=== PATIENT | male | born 1980 | race Caucasian/White ===

== ENCOUNTER 2018-02-25 19:07 | Observation (INO) ==
[2018-02-25] MEDS ORDERED: Sodium Chlor 0.9% Inj 500 ML IV.SIG ONE (20:07)
--- NOTE | 2018-02-25 20:19 | ED ---
HPI General Chief Complaint: Chest Pain Stated Complaint: Medical Clearance Time Seen by Provider: 02/25/18 20:07 Source: patient Limitations: no limitations History of Present Illness HPI narrative: The patient is a 37 year old male who presents to the [facility] emergency department with a history of chest pain that he reports first began approximately 4 weeks ago. He went to an emergency department with symptoms of alcohol withdrawal which were familiar to him and was also experiencing chest pain at that time. A chest pain workup was started and the patient ended up undergoing cardiac catheterization in [place] with a stent placed. The patient reports that he was clean and sober for 177 days prior to relapsing. The patient reports that he relapsed due to a in the family. He reports that he recently moved to the area. The patient was placed under arrest by a police worker prior to arrival for an outstanding warrant, at which time the patient began to complain of chest pain. The patient reports that the chest pain has been coming and going for the last 3-1/2 weeks. He reports that it is relieved by taking shots of vodka. He reports that he is drinking approximately 2 bottles of vodka daily. The other details regarding the patient's chest pain are as below. The patient reports that he has not been taking any medications as previously prescribed including amlodipine, lisinopril for hypertension, or aspirin daily. Complete Quality Measures for STEMI Alert Patients Onset (ago): week(s) (3 and 1/2 weeks ago) Duration: intermittent Onset: other (randomly occurs) Pain location: right chest (next to sternum) Severity: moderate Quality: aching Pain radiation: none Relieving factors: other (drinking alcohol) Exacerbating factors: exertion Context: other (history of stent placement in [place] 4 weeks ago.) Associated symptoms: nausea, diaphoresis and dyspnea Treatments prior to arrival chest pain: none Related Data Home Medications Medication Instructions Recorded Confirmed No Known Home Medications 02/25/18 02/25/18 Allergies Allergy/AdvReac Type Severity Reaction Status Date / Time No Known Allergies Allergy Unverified 02/25/18 20:07 Review of Systems ROS Unobtainable All other systems reviewed negative except as stated in HPI Constitutional Denies fever(s) Eyes Denies change in vision ENT Denies headache(s) and Denies nasal congestion Cardiovascular Reports chest pain, Reports chest pain at rest, Reports diaphoresis and Reports dyspnea Respiratory Denies chest congestion, Denies cough and Reports dyspnea Gastrointestinal Denies abdominal pain, Reports diarrhea (yesterday morning x1.), Reports nausea and Denies vomiting Genitourinary Denies difficulty urinating Musculoskeletal Denies myalgias Integumentary/Breasts Denies rash Neurologic Denies headache(s), Denies focal weakness and Denies weakness Psychiatric Denies depression and Reports other (alcohol abuse) Endocrine Denies polyuria Hematologic/Lymphatic Denies easy bruising PMFSH Medical History Medical History Hypertension (Acute) Myocardial infarct (Acute) Surgical History Surgical History Stented coronary artery (Acute) Social History Social History Substance History: Active Abuse Smoking Status: Current every day smoker Tobacco Type: Cigarettes Cigarettes Per Day: 17 How Often Do You Have a Drink Containing Alcohol: 4 or more times a week Substance Abuse Detail Crack/Cocaine: Substance Use Status: Active Last Used: yesterday Immunization History Tetanus Immunization: Unsure Exam Const General: cooperative and no acute distress Nutritional Appearance: well nourished Orientation: oriented x3 HENMT Head: normocephalic and atraumatic Nose: no nasal discharge and no epistaxis Mouth: moist mucous membranes Eyes Sclera: normal sclerae Pupils: PERRL Neck Neck: trachea midline and no JVD Resp Effort & Inspection: no use of accessory muscles Auscultation: clear to auscultation bilaterally Cardio Rate: regular rate and tachycardic Rhythm: regular rhythm Heart Sounds: no gallops, no murmurs and no rubs GI Inspection: non-distended Palpation: soft, no hepatosplenomegaly and nontender Skin General: dry skin (warm) Neuro General: alert and awake Cranial Nerves: other Speech: speech normal Motor: no movement abnormalities noted Extrem General: normal to inspection, no clubbing, no cyanosis, no edema and other (No calf tenderness on palpation) Psych Mood: congruent mood Affect: normal affect Judgment: judgment good Course Hospital Course: During the course of the patient's emergency department visit, the patient's history, examination, and differential diagnosis were reviewed with the patient. The patient was placed on a edger tailer with oximetry and frequent blood pressure monitoring. The patient had IV access obtained and blood work sent for analysis. The patient was initially provided normal saline at 500 mL bolus x1, aspirin 324 mg p.o. x1. Nitroglycerin sublingual x1, nitroglycerin 1 inch to the chest wall. Reevaluation(s) Reevaluation #1: The patient on reevaluation reports that he is feeling anxious. The patient has a known history of alcohol abuse. The patient was given Librium 25 mg p.o. 1. The patient otherwise has no signs on examination of alcohol withdrawal. Initial Documented Vital Signs Temperature 98.7 F 02/25/18 19:55 Pulse Rate 120 H 02/25/18 19:55 Respiratory Rate 19 02/25/18 19:55 Blood Pressure 159/97 H 02/25/18 19:55 Pulse Oximetry 93 L 02/25/18 19:55 Last Documented Vital Signs Temperature 98.7 F 02/25/18 19:55 Pulse Rate 101 H 02/25/18 20:03 Respiratory Rate 16 02/25/18 20:03 Blood Pressure 148/86 H 02/25/18 20:03 Pulse Oximetry 95 02/25/18 20:03 Medical Decision Making MDM Narrative Medical decision making narrative: The patient's diagnostic testing is remarkable for a white count of 6.3, hemoglobin is 15.3, platelets 258 with a normal differential. PT 9.9, PTT 24, CMP is remarkable for a GFR of 81, lipase is 181 150, CPK is 649 with an MB percent of 0.6. The patient will be continued on another liter of normal saline IV fluids. Troponin I is less than 0.02. The patient's chest x-ray showed no acute abnormality. The patient will be admitted to the chest pain center for rule out serial cardiac enzyme protocol given his reported recent history of being diagnosed with coronary artery disease and stent placement. Differential Diagnosis Differential Diagnosis: Acute coronary syndrome, versus acid reflux, versus alcohol related gastritis, versus pancreatitis, versus pulmonary embolism Medical Records Medical records reviewed: Yes I reviewed the patient's medical records. Lab Data Lab results reviewed: Yes I reviewed the patient's lab results. Result diagrams: 02/25/18 20:52 02/25/18 20:10 Lab Results 02/25/18 02/25/18 02/25/18 Range/Units 20:10 20:10 20:52 WBC 6.3 (4.0-11.0) th/mm3 RBC 4.84 (4.50-5.90) mil/mm3 Hgb 15.3 (13.0-17.0) gm/dL Hct 43.7 (39.0-51.0) % MCV 90.3 (80.0-100.0) fL MCH 31.6 (27.0-34.0) pg MCHC 35.0 (32.0-36.0) % RDW 14.8 (11.6-17.2) % Plt Count 258 (150-450) th/mm3 MPV 6.9 L (7.0-11.0) fL Neut % (Auto) 51.6 (16.0-70.0) % Lymph % (Auto) 39.7 (9.0-44.0) % [place] % (Auto) 6.7 (0.0-8.0) % Eos % (Auto) 1.6 (0.0-4.0) % Baso % (Auto) 0.4 (0.0-2.0) % Neut # (Auto) 3.2 (1.8-7.7) th/mm3 Lymph # (Auto) 2.5 (1.0-4.8) th/mm3 [place] # (Auto) 0.4 (0.0-0.9) th/mm3 Eos # (Auto) 0.1 (0.0-0.4) th/mm3 Baso # (Auto) 0.0 (0.0-0.2) th/mm3 WBC Differential . Differential Comment Auto diff final PT 9.9 (9.8-11.6) sec INR 1.0 Ratio APTT 24.0 L (24.3-30.1) sec Sodium 141 (136-145) meq/L Potassium 4.0 (3.5-5.1) meq/L Chloride 106 (98-107) meq/L Carbon Dioxide 21.6 (21.0-32.0) meq/L Anion Gap 13 (5-15) meq/L BUN 13 (7-18) mg/dL Creatinine 1.04 (0.60-1.30) mg/dL Estimated GFR 81 L (>89) mL/min Random Glucose 91 (74-106) mg/dL Calcium 8.9 (8.5-10.1) mg/dL Magnesium 2.2 (1.5-2.5) mg/dL Total Bilirubin 0.2 (0.2-1.0) mg/dL AST 32 (15-37) U/L ALT 39 (12-78) U/L Alkaline Phosphatase 100 (45-117) U/L Total Creatine Kinase 649 H (39-308) U/L CK-MB (CK-2) 4.2 H (0.5-3.6) ng/mL CK-MB (CK-2) % 0.6 (0.0-4.0) % Troponin I Less than 0.02 L (0.02-0.05) ng/mL Total Protein 7.9 (6.4-8.2) g/dL Albumin 4.2 (3.4-5.0) g/dL Lipase 150 (73-393) U/L Serum Alcohol 243 H (0-5) mg/dL Imaging Data Radiologist's impression: ITS Impressions Chest X-Ray 02/25/18 20:07 CONCLUSION: No active disease. ECG Data Attestation: I personally reviewed and interpreted this ECG as follows: Interpretation: The patient had an EKG done on arrival that shows a sinus. No acute ST segment elevation is noted. Discharge Plan Discharge Disposition Patient Disposition: 30 Still Patient Discharge Details Discharge Problem: Chest pain, rule out acute myocardial infarction Physicians Team ED Provider: Crystal Cabrera Primary Care Provider: Primary Care Juhi Espinoza Rxs /Orders / Referrals /Forms Prescriptions: No Action No Known Home Medications RF: 0 Discharge Instructions Patient Printed Instructions: Chest Pain (ED) Discharge Interventions Interventions: Vital Signs Last Done: 02/25/18 20:03 Status ED Status: With Doctor
--- NOTE | 2018-02-25 20:25 | XR ---
EXAM DATE: 02/25/2018 8:18 PM EDT AGE/SEX: 37 years / Male INDICATIONS: Chronic chest pain. CLINICAL DATA: This is the patient's initial encounter. Patient reports that signs and symptoms have been present for 2 months and indicates a pain score of 4/10. MEDICAL/SURGICAL HISTORY: None. . Cardiac stent. COMPARISON: No prior exams available for comparison. FINDINGS: A single AP view of the chest demonstrates the lungs to be symmetrically aerated without evidence of mass, infiltrate or effusion. The cardiomediastinal contours are unremarkable. Osseous structures a re intact. CONCLUSION: No active disease. Electronically signed by: Alpesh Egan MD 02/25/2018 8:24 PM EDT
[2018-02-25 20:38] LABS: Prothrombin Time 9.9 sec (9.8-11.6)
[2018-02-25 20:45] LABS: Alanine Aminotransferase 39 U/L (12-78)
[2018-02-25 20:52] LABS: Albumin 4.2 g/dL (3.4-5.0); Alkaline Phosphatase 100 U/L (45-117); Anion Gap 13 meq/L (5-15); Aspartate Aminotransferase 32 U/L (15-37); Blood Urea Nitrogen 13 mg/dL (7-18); Calcium 8.9 mg/dL (8.5-10.1); Carbon Dioxide 21.6 meq/L (21.0-32.0); Chloride 106 meq/L (98-107); Creatine Kinase 649 U/L (39-308); Glomerular Filtration Rate 81 mL/min (>89); Glucose,Random 91 mg/dL (74-106); Lipase 150 U/L (73-393); Magnesium 2.2 mg/dL (1.5-2.5); Sodium 141 meq/L (136-145); Total Protein 7.9 g/dL (6.4-8.2)
[2018-02-25 20:53] LABS: Alcohol 243 mg/dL (0-5)
[2018-02-25] MEDS ORDERED: chlordiazePOXIDE 25 MG Capsule PO ONE (21:05)
[2018-02-25 21:06] LABS: CKMB Percent 0.6 % (0.0-4.0); Creatine Kinase MB 4.2 ng/mL (0.5-3.6)
[2018-02-25 21:12] LABS: Baso % (Auto) 0.4 % (0.0-2.0); Eos # (Auto) 0.1 th/mm3 (0.0-0.4); Eos % (Auto) 1.6 % (0.0-4.0); Hematocrit 43.7 % (39.0-51.0); Hemoglobin 15.3 gm/dL (13.0-17.0); Lymph # (Auto) 2.5 th/mm3 (1.0-4.8); Lymph % (Auto) 39.7 % (9.0-44.0); Mean Corpuscular Hemoglobin 31.6 pg (27.0-34.0); Mean Corpuscular Volume 90.3 fL (80.0-100.0); Mean Platelet Volume 6.9 fL (7.0-11.0); Mono # (Auto) 0.4 th/mm3 (0.0-0.9); Mono % (Auto) 6.7 % (0.0-8.0); Neut # (Auto) 3.2 th/mm3 (1.8-7.7); Neut % (Auto) 51.6 % (16.0-70.0); Platelet Count 258 th/mm3 (150-450); Red Blood Count 4.84 mil/mm3 (4.50-5.90); Red Cell Distribution Width 14.8 % (11.6-17.2); White Blood Count 6.3 th/mm3 (4.0-11.0)
[2018-02-25] MEDS ORDERED: ALPRAZolam 0.25 MG Tablet PO PRN (21:41)
[2018-02-25] MEDS ORDERED: Acetaminophen 500 MG Tablet PO PRN (21:41)
[2018-02-25] MEDS ORDERED: Sod Chloride 0.9% Inj 1,000 ML IV.SIG ONE (21:43)
[2018-02-25] MEDS ORDERED: Sod Chloride 0.9% Inj 1,000 ML IV.CONT SCH (21:45)
[2018-02-25 21:50] LABS: Bilirubin,Urine Negative (Negative); Clarity,Urine Clear (Clear); Color,Urine Yellow (Yellw/Straw); Glucose,Urine (UA) Negative (Negative); Leukocyte Esterase,Urine Trace (Negative); Mucus,Urine Few /lpf (Occasional); Nitrite,Urine Negative (Negative); Specific Gravity,Urine 1.011 (1.002-1.035)
[2018-02-25 23:40] LABS: Creatine Kinase 542 U/L (39-308)
[2018-02-25 23:52] LABS: CKMB Percent 0.6 % (0.0-4.0); Creatine Kinase MB 3.5 ng/mL (0.5-3.6)
[2018-02-26 00:04] LABS: Amphetamine Screen,Urine Pos (Neg); Barbiturate Screen,Urine Neg (Neg); Cannabinoid Screen,Urine Neg (Neg); Cocaine Screen,Urine Pos (Neg)
[2018-02-26 00:07] LABS: Opiate Screen,Urine Neg (Neg)
[2018-02-26] MEDS ORDERED: Lisinopril 10 MG Tablet PO SCH (09:00)
[2018-02-26] MEDS ORDERED: Famotidine 20 MG Tablet PO SCH (09:00)
--- NOTE | 2018-02-26 09:47 | ECG ---
Date Performed: 02/25/2018 Time Performed: 19:46:00 PTAGE: 37 years EKG: SINUS TACHYCARDIA SEPTAL MYOCARDIAL INFARCTION ABNORMAL ECG Since the PREVIOUS TRACING , no significant change noted PREVIOUS TRACING DOCTOR: Ash Tobar Interpretating Date/Time 02/26/2018 09:45:02
--- NOTE | 2018-02-26 09:47 | ECG ---
Date Performed: 02/25/2018 Time Performed: 22:55:31 PTAGE: 37 years EKG: Sinus rhythm NORMAL ECG Since the PREVIOUS TRACING , no significant change noted PREVIOUS TRACIN02/25/2018 19.46 DOCTOR: Ash Tobar Interpretating Date/Time 02/26/2018 09:44:49
== END 2018-02-26 01:05 | disposition left against medical advice (07) ==
LOC: NEPE 19:07 → NEPGCP 19:07 → NEDA 19:07 → NEPGCP 02-26 00:09
PROVIDERS: ADMIT Internal Medicine Interventional Cardiology; ATTEND Internal Medicine Interventional Cardiology
DX: F14.10 Cocaine abuse, uncomplicated; R00.0 Tachycardia, unspecified; I25.10 Atherosclerotic heart disease of native coronary artery without angina pectoris; I25.2 Old myocardial infarction; Z91.14 Patient's other noncompliance with medication regimen; R06.00 Dyspnea, unspecified; F17.210 Nicotine dependence, cigarettes, uncomplicated; F10.10 Alcohol abuse, uncomplicated; Z95.1 Presence of aortocoronary bypass graft; I10 Essential (primary) hypertension; R61 Generalized hyperhidrosis; R07.9 Chest pain, unspecified; Z79.899 Other long term (current) drug therapy; R11.0 Nausea

== ENCOUNTER 2018-07-26 08:31 | Observation (INO) ==
--- NOTE | 2018-07-26 09:05 | ED ---
HPI General Chief Complaint: Chest Pain Stated Complaint: Chest Pain Time Seen by Provider: 07/26/18 08:49 History of Present Illness HPI narrative: This patient presents handcuffed under arrest and police custody. He got in an altercation with the police and during that developed chest heaviness and pressure. At slow center sternum and just to the right of center. He says that he had stent placement in [place] January 2018. Does not follow with cardiology or take any medications regularly or follow-up. He is very noncompliant. He continues to smoke. Severity is moderate. Duration 1 hour. No alleviating factors. No exacerbating factors. Related Data Home Medications Medication Instructions Recorded Confirmed lisinopril 10 mg PO DAILY 07/26/18 07/26/18 Allergies Allergy/AdvReac Type Severity Reaction Status Date / Time No Known Allergies Allergy Unverified 07/26/18 08:38 Review of Systems ROS: all other systems reviewed are negative PMFSH Social History Social History Substance History: No History of Abuse Second Hand Smoke Exposure: No Smoking Status: Never smoker Tobacco Type: Cigarettes Cigarettes Per Day: 17 How Often Do You Have a Drink Containing Alcohol: Monthly or less Recent Travel in [facility] within the Last 8 Weeks: No Recent Out of Country Travel within the Last 8 Weeks: No Immunization History Tetanus Immunization: Unsure Exam Narrative Exam Narrative: GENERAL: Well-nourished, well-developed patient in handcuffs . SKIN: Focused skin assessment reveals no rash and nodules. Skin is Warm and dry. HEAD: Atraumatic. Normocephalic. EYES: Pupils equal and round. No scleral icterus. No injection or drainage. ENT: No nasal bleeding or discharge. Mucous membranes pink and moist. NECK: Trachea midline. No JVD. CARDIOVASCULAR: Regular rate and rhythm. No murmur appreciated. RESPIRATORY: No accessory muscle use. Clear to auscultation. Breath sounds equal bilaterally. GASTROINTESTINAL: Abdomen soft, non-tender, nondistended. Hepatic and splenic margins not palpable. MUSCULOSKELETAL: No obvious deformities. No clubbing. No cyanosis. No edema. NEUROLOGICAL: Awake and alert. No obvious cranial nerve deficits. Motor grossly within normal limits. Normal speech. PSYCHIATRIC: Appropriate mood and affect; insight and judgment poor . Course Initial Documented Vital Signs Temperature 98.6 F 07/26/18 08:38 Pulse Rate 98 H 07/26/18 08:38 Respiratory Rate 18 07/26/18 08:38 Blood Pressure 160/94 H 07/26/18 08:38 Pulse Oximetry 100 07/26/18 08:38 Last Documented Vital Signs Temperature 98.6 F 07/26/18 08:38 Pulse Rate 98 H 07/26/18 08:38 Respiratory Rate 18 07/26/18 08:38 Blood Pressure 160/94 H 07/26/18 08:38 Pulse Oximetry 100 07/26/18 08:38 Medical Decision Making MDM Narrative Medical decision making narrative: 38-year-old male reported history of stent 6 months ago complains of an hour of chest heaviness. I have given him an aspirin and ordered the chest pain workup. Cardiac workup is negative. However he is a hypertensive smoker who says he has a stent so I am going to make him a 23-hour observation in the chest pain center to rule out cardiac cause of his symptoms. At this time his pain is gone. Medical Screen Exam Complete: Yes Emergency Medical Condition: Yes Differential Diagnosis Differential Diagnosis: Differential diagnosis includes OH, angina, pericarditis , pleurisy, GERD, anxiety. Medical Records Medical records reviewed: Yes I reviewed the patient's medical records. Patient was seen here 5 months ago with chest pain also when arrested Lab Data Lab results reviewed: Yes I reviewed the patient's lab results. Lab results narrative: Labs are normal Result diagrams: 07/26/18 09:38 07/26/18 09:38 Lab Results 07/26/18 07/26/18 Range/Units 09:38 09:38 WBC 7.1 (4.0-11.0) th/mm3 RBC 4.76 (4.50-5.90) mil/mm3 Hgb 14.7 (13.0-17.0) gm/dL Hct 44.0 (39.0-51.0) % MCV 92.5 (80.0-100.0) fL MCH 30.9 (27.0-34.0) pg MCHC 33.4 (32.0-36.0) % RDW 13.1 (11.6-17.2) % Plt Count 260 (150-450) th/mm3 MPV 7.3 (7.0-11.0) fL Neut % (Auto) 70.1 H (16.0-70.0) % Lymph % (Auto) 23.3 (9.0-44.0) % [place] % (Auto) 5.1 (0.0-8.0) % Eos % (Auto) 1.2 (0.0-4.0) % Baso % (Auto) 0.3 (0.0-2.0) % Neut # (Auto) 4.9 (1.8-7.7) th/mm3 Lymph # (Auto) 1.6 (1.0-4.8) th/mm3 [place] # (Auto) 0.4 (0.0-0.9) th/mm3 Eos # (Auto) 0.1 (0.0-0.4) th/mm3 Baso # (Auto) 0.0 (0.0-0.2) th/mm3 WBC Differential . Differential Comment Auto diff final Sodium 141 (136-145) meq/L Potassium 4.1 (3.5-5.1) meq/L Chloride 106 (98-107) meq/L Carbon Dioxide 24.9 (21.0-32.0) meq/L Anion Gap 10 (5-15) meq/L BUN 7 (7-18) mg/dL Creatinine 0.90 (0.60-1.30) mg/dL Estimated GFR Greater than 89 (>89) mL/min Random Glucose 87 (74-106) mg/dL Calcium 8.5 (8.5-10.1) mg/dL Total Bilirubin 0.4 (0.2-1.0) mg/dL AST 48 H (15-37) U/L ALT 51 (12-78) U/L Alkaline Phosphatase 101 (45-117) U/L Total Creatine Kinase 751 H (39-308) U/L CK-MB (CK-2) 4.8 H (0.5-3.6) ng/mL CK-MB (CK-2) % 0.6 (0.0-4.0) % Troponin I Less than 0.02 L (0.02-0.05) ng/mL Total Protein 7.9 (6.4-8.2) g/dL Albumin 4.1 (3.4-5.0) g/dL Imaging Data Attestation: I personally reviewed and interpreted this imaging study as follows : My impression: Chest x-ray is negative Radiologist's impression: Chest X-Ray 07/26/18 09:00 CONCLUSION: No acute cardiopulmonary disease. ECG Data EKG Prior to Arrival: No Attestation: I personally reviewed and interpreted this ECG as follows: Prior ECG tracings: not available for review Discharge Plan Discharge Disposition Patient Disposition: ED Admit(ED Internal Use Only) Discharge Details Diagnosis: Chest pain in adult Physicians Team ED Provider: Alton Omer Primary Care Provider: Primary Care Juhi Espinoza Rxs /Orders / Referrals /Forms Prescriptions: No Action lisinopril 10 mg Tablet 10 mg PO DAILY RF: 0 Discharge Instructions Patient Printed Instructions: Chest Pain (ED) Status ED Status: With Doctor
--- NOTE | 2018-07-26 09:28 | XR ---
EXAM DATE: 07/26/2018 9:17 AM EST AGE/SEX: 38 years / Male INDICATIONS: Chest pain. CLINICAL DATA: This is the patient's initial encounter. Patient reports that signs and symptoms have been present for 1 day and indicates a pain score of 3/10. MEDICAL/SURGICAL HISTORY: None. . Cardiac stent. COMPARISON: [facility] [place], CHEST 1V SINGLE AP, 02/25/2018. . FINDINGS: A single AP view of the chest demonstrates the lungs to be symmetrically aerated without evidence of mass, infiltrate or effusion. The cardiomediastinal contours are unremarkable. Osseous structures a re intact. CONCLUSION: No acute cardiopulmonary disease. Electronically signed by: Ash Paredes MD 07/26/2018 9:27 AM EST
[2018-07-26 10:13] LABS: Baso % (Auto) 0.3 % (0.0-2.0); Eos # (Auto) 0.1 th/mm3 (0.0-0.4); Eos % (Auto) 1.2 % (0.0-4.0); Hemoglobin 14.7 gm/dL (13.0-17.0); Lymph # (Auto) 1.6 th/mm3 (1.0-4.8); Lymph % (Auto) 23.3 % (9.0-44.0); Mean Corpuscular HGB Conc 33.4 % (32.0-36.0); Mean Corpuscular Hemoglobin 30.9 pg (27.0-34.0); Mean Corpuscular Volume 92.5 fL (80.0-100.0); Mean Platelet Volume 7.3 fL (7.0-11.0); Mono # (Auto) 0.4 th/mm3 (0.0-0.9); Mono % (Auto) 5.1 % (0.0-8.0); Neut # (Auto) 4.9 th/mm3 (1.8-7.7); Neut % (Auto) 70.1 % (16.0-70.0); Platelet Count 260 th/mm3 (150-450); Red Blood Count 4.76 mil/mm3 (4.50-5.90); Red Cell Distribution Width 13.1 % (11.6-17.2); White Blood Count 7.1 th/mm3 (4.0-11.0)
[2018-07-26 10:26] LABS: Alanine Aminotransferase 51 U/L (12-78); Albumin 4.1 g/dL (3.4-5.0); Anion Gap 10 meq/L (5-15); Aspartate Aminotransferase 48 U/L (15-37); Blood Urea Nitrogen 7 mg/dL (7-18); Calcium 8.5 mg/dL (8.5-10.1); Carbon Dioxide 24.9 meq/L (21.0-32.0); Chloride 106 meq/L (98-107); Glomerular Filtration Rate Greater Than 89 mL/min (>89); Glucose,Random 87 mg/dL (74-106); Potassium 4.1 meq/L (3.5-5.1); Sodium 141 meq/L (136-145)
[2018-07-26 10:29] LABS: Alkaline Phosphatase 101 U/L (45-117); Creatine Kinase 751 U/L (39-308); Total Protein 7.9 g/dL (6.4-8.2)
[2018-07-26 10:51] LABS: CKMB Percent 0.6 % (0.0-4.0); Creatine Kinase MB 4.8 ng/mL (0.5-3.6)
--- NOTE | 2018-07-26 14:59 | P.HPCA ---
History of Present Illness Primary Care Physician: No Primary Care Physician Chief Complaint: Chest pain History of Present Illness: 38 year old male who reports longstanding problem with alcohol, history of hypertension, and cardiac stent placed 01/2018 presents to ER for further evaluation of chest pain. Onset 0800 after getting into an altercation with police. Location right anterior chest. Described as sharp, heavy, pressure, "like an elephant on my chest." No radiation. Associated symptoms included dyspnea. Denied vomiting, nausea, or diaphoresis. Duration wax and wane in intensity never completely resolving. Precipitating factors altercation police officers. No relieving factors. Endorses similar pain in the past prior to cardiac stent placed in January 2018. Does not follow with a photograph tinter or primary care provider. Reports being an alcoholic states drinking at least 1 bottle vodka daily. Last drink this morning. No recent illness, fever, cough, or injury. Past cardiac testing Cardiac catheterization January 2018 ([place], [place]) reports x1 cardiac stent placed to right side of heart. Social history Known coronary artery disease and hypertension. Not taking any medications, including statin therapy. No known diabetes. Reports smoking tobacco occasionally. Drinks 1 bottle vodka daily. Denies correctional drug use. Endorses past cocaine and crack use. States heart attack in January caused from cocaine use. Works for a [employer]. Family history Noncontributory for early onset cardiovascular disease - Diagnosis (1) Chest pain, rule out acute myocardial infarction (2) History of coronary artery disease (3) Hypertension (4) Alcohol abuse (5) Tobacco use Review of Systems All other systems reviewed negative except as stated in [facility] - History History Provided By: Patient - Medical History Medical History: Medical History (Last Updated 07/26/18 @ 15:02 by SANDRA Gale) Hypertension (Acute) Myocardial infarct (Acute) Alcohol abuse Coronary artery disease - Surgical History Surgical History: Surgical History (Last Reviewed 07/26/18 @ 15:02 by SANDRA Gale) Stented coronary artery (Acute) - Tobacco History Second Hand Smoke Exposure: No Tobacco Use In Past 30 Days: No Smoking Status: Current some day smoker Tobacco Type: Cigarettes - Alcohol History How Often Do You Have a Drink Containing Alcohol: 4 or more times a week (daily 1 bottle of vodka) - Substance Use History Substance History: No History of Abuse - Substance Use Type Crack/Cocaine Status: Early Remission (last use summer 2017) - Travel History Recent Travel in the [place] Within the Last 8 Weeks: No Recent Travel Out of the Country Within the Last 8 Weeks: No - Immunization History Tetanus Immunization: Unsure Medications and Allergies Active Medications: Active Medications Sodium Chloride (Ns Flush) 2 ml IV.FLUSH UNSCH PRN PRN Reason: FLUSH AFTER USING IV ACCESS Sodium Chloride (Ns Flush) 2 ml IV.FLUSH BID RADHA Allergies Allergy/AdvReac Type Severity Reaction Status Date / Time No Known Allergies Allergy Unverified 07/26/18 08:38 Home Medications Medication Instructions Recorded Confirmed Type lisinopril 10 mg PO DAILY 07/26/18 07/26/18 History Exam Vital signs: Vital Signs 07/26/18 08:38 Temperature 98.6 F Pulse Rate 98 H Respiratory Rate 18 Blood Pressure 160/94 H Pulse Oximetry 100 Intake & Output 07/25/18 07/26/18 07/26/18 18:59 06:59 18:59 Weight 83.915 kg Narrative: GENERAL: Alert WN, WD, male in police custody, handcuffed to stretcher , appears intoxicated HEAD: NC, AT EYES: Sclera clear, conjunctiva without injection, pupils equal and round ENT: Mucous membranes pink and moist CV: RRR, without murmur, rub, gallop, no JVD, S1-S2. RESP: Clear lungs throughout bilateral, no crackles, wheeze, rhonchi, symmetrical chest rise, nonlabored, able to speak in full sentences ABD: Soft, NT, ND, no masses, positive bowel tones BACK: No scoliosis EXT: Pulses +2x4, no dependent edema MS: Normal tone x4 extremities, nontender, no obvious deformities, full range of motion NEURO: Motor strength 5/5 PSYCH: A+O x3, flat affect, appropriate speech, depressed mood, questionable insight and judgment SKIN: Normal turgor, warm, diaphoretic, normal texture, no lesions, no rashes, even hair distribution, multiple tattoos Results 07/26/18 09:38 07/26/18 09:38 Cardiac Enzymes 07/26/18 Range/Units 09:38 AST 48 H (15-37) U/L CK-MB (CK-2) 4.8 H (0.5-3.6) ng/mL Troponin I Less than 0.02 L (0.02-0.05) ng/mL CBC 07/26/18 Range/Units 09:38 WBC 7.1 (4.0-11.0) th/mm3 RBC 4.76 (4.50-5.90) mil/mm3 Hgb 14.7 (13.0-17.0) gm/dL Hct 44.0 (39.0-51.0) % Plt Count 260 (150-450) th/mm3 Neut # (Auto) 4.9 (1.8-7.7) th/mm3 Lymph # (Auto) 1.6 (1.0-4.8) th/mm3 [place] # (Auto) 0.4 (0.0-0.9) th/mm3 Eos # (Auto) 0.1 (0.0-0.4) th/mm3 Baso # (Auto) 0.0 (0.0-0.2) th/mm3 Comprehensive Metabolic Panel 07/26/18 Range/Units 09:38 Sodium 141 (136-145) meq/L Potassium 4.1 (3.5-5.1) meq/L Chloride 106 (98-107) meq/L Carbon Dioxide 24.9 (21.0-32.0) meq/L BUN 7 (7-18) mg/dL Creatinine 0.90 (0.60-1.30) mg/dL Calcium 8.5 (8.5-10.1) mg/dL AST 48 H (15-37) U/L ALT 51 (12-78) U/L Alkaline Phosphatase 101 (45-117) U/L Total Protein 7.9 (6.4-8.2) g/dL Albumin 4.1 (3.4-5.0) g/dL Intake and Output 07/25/18 07/26/18 07/26/18 22:59 06:59 14:59 Other: Weight 83.915 kg Patient Weight 07/27/18 06:59 Weight 83.915 kg - Imaging and Cardiology Imaging: Impressions Chest X-Ray 07/26/18 09:00 CONCLUSION: No acute cardiopulmonary disease. EKG interpretations - EKG EKG results cardiology: sinus rhythm, normal axis, normal QRS, normal ST/T Caprini VTE Risk Assessment Caprini VTE Risk Assessment: No/Low Risk (score <= 1) Caprini Risk Assessment Model: Point Value = 1 Point Value = 2 Point Value = 3 Point Value = 5 Age 41-60 Minor surgery BMI > 25 kg/m2 Swollen legs Varicose veins or History of unexplained or recurrent spontaneous Oral contraceptives or hormone replacement Sepsis (< 1 month) Serious lung disease, including pneumonia (< 1 month) Abnormal pulmonary function Acute myocardial infarction Congestive heart failure (< 1 month) History of inflammatory bowel disease Medical patient at bed rest Age 61-74 Arthroscopic surgery Major open surgery (> 45 min) Laparoscopic surgery (> 45 min) Malignancy Confined to bed (> 72 hours) Immobilizing plaster cast Central venous access Age >= 75 History of VTE Family history of VTE Factor V Leiden Prothrombin [id number] Lupus anticoagulant Anticardiolipin antibodies Elevated serum homocysteine Heparin-induced thrombocytopenia Other congenital or acquired thrombophilia Stroke (< 1 month) Elective arthroplasty Hip, pelvis, or leg fracture Acute spinal cord injury (< 1 month) Prophylaxis Regimen: Total Risk Factor Score Risk Level Prophylaxis Regimen 0-1 Low Early ambulation 2 Moderate Order ONE of the following: *Sequential Compression Device (SCD) *Heparin 5000 units SQ BID 3-4 Higher Order ONE of the following medications: *Heparin 5000 units SQ TID *Enoxaparin/Lovenox 40 mg SQ daily (WT < 150 kg, CrCl > 30 mL/min) *Enoxaparin/Lovenox 30 mg SQ daily (WT < 150 kg, CrCl > 10-29 mL/min) *Enoxaparin/Lovenox 30 mg SQ BID (WT < 150 kg, CrCl > 30 mL/min) AND/OR *Sequential Compression Device (SCD) 5 or more Highest Order ONE of the following medications: *Heparin 5000 units SQ TID (Preferred with Epidurals) *Enoxaparin/Lovenox 40 mg SQ daily (WT < 150 kg, CrCl > 30 mL/min) *Enoxaparin/Lovenox 30 mg SQ daily (WT < 150 kg, CrCl > 10-29 mL/min) *Enoxaparin/Lovenox 30 mg SQ BID (WT < 150 kg, CrCl > 30 mL/min) AND *Sequential Compression Device (SCD) Assessment and Plan - Assessment (1) Chest pain, rule out acute myocardial infarction Code(s): R07.9 - Chest pain, unspecified Status: Acute Plan: Admitted to chest pain center. Continue ruling out ACS with standard protocol including 3 sets of EKGs and cardiac enzymes. Will be seen and evaluated by Dr. Ash Tobar in morning. Attempt to obtain medical records from [facility] in [place]. Further disposition to follow after evaluation by chest pain center photograph tinter. Patient made aware of overnight stay and agreeable to plan of care. (2) History of coronary artery disease Code(s): Z86.79 - Personal history of other diseases of the circulatory system Status: Chronic Plan: Aspirin given in [place]. Discussed importance of medication compliance, establishing with a photograph tinter, and alcohol sensation. (3) Hypertension Code(s): I10 - Essential (primary) hypertension Status: Chronic Plan: Continue to monitor. Consider adding amlodipine 5 mg daily. (4) Alcohol abuse Code(s): F10.10 - Alcohol abuse, uncomplicated Status: Chronic Plan: [facility] protocol. Encouraged considering Alcoholics Anonymous to assist him with alcohol cessation. (5) Tobacco use Code(s): Z72.0 - Tobacco use Status: Chronic Plan: Strongly encouraged and stressed the importance of tobacco cessation. Instructed to quit smoking.
[2018-07-26 15:55] LABS: Creatine Kinase 628 U/L (39-308)
[2018-07-26] MEDS ORDERED: Haloperidol Inj 5 MG/ML Ampul IV.PUSH PRN (16:00)
[2018-07-26] MEDS ORDERED: LORazepam 1 MG Tablet PO PRN (16:00)
[2018-07-26 16:07] LABS: CKMB Percent 0.7 % (0.0-4.0); Creatine Kinase MB 4.1 ng/mL (0.5-3.6)
[2018-07-26 17:33] LABS: Creatine Kinase 575 U/L (39-308)
[2018-07-26 17:46] LABS: CKMB Percent 0.7 % (0.0-4.0); Creatine Kinase MB 4.3 ng/mL (0.5-3.6)
[2018-07-27 07:16] VITALS: BP 156/97; RESP 16; TEMP 98.3; O2SAT 96
--- NOTE | 2018-07-27 10:53 | P.PNCA ---
Subjective Interval history: Complains of still having constant chest discomfort points to right side of his chest. Medications and Allergies Active Medications: Active Medications Flumazenil (Romazecon Inj) 0.2 mg IV.PUSH Q1M PRN PRN Reason: OVERSEDATION Haloperidol Lactate (Haldol Inj) 1 mg IV.PUSH Q15M PRN PRN Reason: for severe agitation Lorazepam (Ativan) 1 mg PO Q4H PRN PRN Reason: for CIWA 8-10 Lorazepam (Ativan) 2 mg PO Q2H PRN PRN Reason: for CIWA 11-14 Lorazepam (Ativan Inj) 2 mg IV.PUSH Q2H PRN PRN Reason: for CIWA 11-14 Last Admin: 07/27/18 10:04 Dose: 2 mg Lorazepam (Ativan Inj) 2 mg IV.PUSH Q1H PRN PRN Reason: for CIWA 15-20 Lorazepam (Ativan Inj) 2 mg IV.PUSH Q15M PRN PRN Reason: for CIWA > 20 Lorazepam (Ativan Inj) 1 mg IV.PUSH Q4H PRN PRN Reason: for CIWA 8-10 Sodium Chloride (Ns Flush) 2 ml IV.FLUSH UNSCH PRN PRN Reason: FLUSH AFTER USING IV ACCESS Sodium Chloride (Ns Flush) 2 ml IV.FLUSH BID RADHA Last Admin: 07/27/18 10:28 Dose: 2 ml Allergies Allergy/AdvReac Type Severity Reaction Status Date / Time No Known Allergies Allergy Unverified 07/26/18 08:38 Home Medications Medication Instructions Recorded Confirmed Type lisinopril 10 mg PO DAILY 07/26/18 07/26/18 History Physical Exam Vital signs: Vital Signs 07/26/18 16:30 07/26/18 19:47 07/26/18 20:00 Temperature 98.1 F 98.2 F Pulse Rate 95 H 98 H 97 H Respiratory Rate 16 16 14 Blood Pressure 163/96 H 144/90 H Pulse Oximetry 100 95 07/27/18 00:00 07/27/18 04:00 07/27/18 07:14 Temperature 98.1 F 98.1 F 98.3 F Pulse Rate 90 93 H 98 H Respiratory Rate 16 14 16 Blood Pressure 150/92 H 161/99 H 156/97 H Pulse Oximetry 95 95 96 Intake & Output 07/26/18 07/27/18 07/27/18 18:59 06:59 18:59 Intake Total 0 / 0 Balance 0 / 0 Weight 102.058 kg Intake: Oral 0 / 0 Other: # Voids 1 0 Weight On Admission 102.058 kg Narrative: General: No apparent distress. administrative officer is also at the bedside. Cardiac: Regular rate and rhythm without murmur gallop or rub. Respiratory: Lungs clear to auscultate bilaterally. GI: Nontender. Bowel sounds normal. Results 07/26/18 09:38 07/26/18 09:38 Cardiac Enzymes 07/26/18 07/26/18 07/26/18 Range/Units 09:38 14:44 17:04 AST 48 H (15-37) U/L CK-MB (CK-2) 4.8 H 4.1 H 4.3 H (0.5-3.6) ng/mL Troponin I Less than 0.02 L Less than 0.02 L Less than 0.02 L (0.02-0.05) ng/mL CBC 07/26/18 Range/Units 09:38 WBC 7.1 (4.0-11.0) th/mm3 RBC 4.76 (4.50-5.90) mil/mm3 Hgb 14.7 (13.0-17.0) gm/dL Hct 44.0 (39.0-51.0) % Plt Count 260 (150-450) th/mm3 Neut # (Auto) 4.9 (1.8-7.7) th/mm3 Lymph # (Auto) 1.6 (1.0-4.8) th/mm3 [place] # (Auto) 0.4 (0.0-0.9) th/mm3 Eos # (Auto) 0.1 (0.0-0.4) th/mm3 Baso # (Auto) 0.0 (0.0-0.2) th/mm3 Comprehensive Metabolic Panel 07/26/18 Range/Units 09:38 Sodium 141 (136-145) meq/L Potassium 4.1 (3.5-5.1) meq/L Chloride 106 (98-107) meq/L Carbon Dioxide 24.9 (21.0-32.0) meq/L BUN 7 (7-18) mg/dL Creatinine 0.90 (0.60-1.30) mg/dL Calcium 8.5 (8.5-10.1) mg/dL AST 48 H (15-37) U/L ALT 51 (12-78) U/L Alkaline Phosphatase 101 (45-117) U/L Total Protein 7.9 (6.4-8.2) g/dL Albumin 4.1 (3.4-5.0) g/dL Intake and Output 07/26/18 07/27/18 07/27/18 22:59 06:59 14:59 Intake Total 0 / 0 Balance 0 / 0 Intake: Oral 0 / 0 Other: # Voids 1 0 Weight 102.058 kg Weight On Admission 102.058 kg - Imaging and Cardiology Imaging: Impressions Chest X-Ray 07/26/18 09:00 CONCLUSION: No acute cardiopulmonary disease. Assessment and Plan - Plan Patient has stated that he had a stent placed a few months ago. Patient was evaluated by Dr. Ash Torrez cardiology chest pain center. [place] protocol ETT was being ordered however patient declined and stated he wanted a chemical stress test. This was ordered. However since examination time we are able to obtain records from a cardiac catheterization from [facility] dated December 28, 2017 that has findings of left main artery being normal, left anterior descending artery being normal, circumflex dominant and normal, right coronary artery normal. The physician was Dr. Leija, Sayed. I discussed this with Dr. Ash Tobar of cardiology, stress test will now be canceled and he will be discharged home with instructions to follow-up with PCP.
[2018-07-27 11:01] VITALS: PULSE 84
--- NOTE | 2018-07-27 14:46 | ECG ---
Date Performed: 07/26/2018 Time Performed: 17:44:47 PTAGE: 38 years EKG: Sinus rhythm NORMAL ECG PREVIOUS TRACING : 07/26/2018 14.48 Since previous tracing, no significant change noted DOCTOR: Ash Tobar Interpretating Date/Time 07/27/2018 14:45:18
--- NOTE | 2018-07-27 14:47 | ECG ---
Date Performed: 07/26/2018 Time Performed: 14:48:44 PTAGE: 38 years EKG: SINUS TACHYCARDIA ABNORMAL RHYTHM ECG PREVIOUS TRACING : 07/26/2018 09.33 Since previous tracing, no significant change noted DOCTOR: Ash Tobar Interpretating Date/Time 07/27/2018 14:46:11
--- NOTE | 2018-07-27 14:48 | ECG ---
Date Performed: 07/26/2018 Time Performed: 09:33:07 PTAGE: 38 years EKG: Sinus rhythm NORMAL ECG PREVIOUS TRACING : 02/26/2018 04.55 Since previous tracing, no significant change noted DOCTOR: Ash Tobar Interpretating Date/Time 07/27/2018 14:46:58
== END 2018-07-27 11:17 | disposition home or self-care (01) ==
LOC: NEPE 08:31 → NEDA 08:31 → NEPFCDU 15:10
PROVIDERS: ADMIT Internal Medicine Interventional Cardiology; ATTEND Internal Medicine Interventional Cardiology